=== PATIENT | female | born 1955 | race Caucasian/White ===

== ENCOUNTER → 2018-10-08 11:04 | Outpatient (CLI) | payer MEDICARE, OTHER, SELFPAY ==
[2018-10-08 12:06] LABS: Blood Urea Nitrogen 21 mg/dL (7-17); Estimated Glomerular Filt Rate > 60.0 mL/min (>60)
== END ==
PROVIDERS: PCP Internal Medicine; Visit Provider Internal Medicine
DX: I71.2 Thoracic aortic aneurysm, without rupture (principal)
CPT/HCPCS: 36415; 82565; 84520

== ENCOUNTER → 2018-10-18 09:36 | Outpatient (CLI) | payer MEDICARE, OTHER, SELFPAY ==
--- NOTE | 2018-10-18 | DI.CT.S_ITS ---
PROCEDURE: CT CHEST W CON INDICATIONS: THORACIC AORTIC ANEURYSM TECHNIQUE: After the administration of intravenous contrast, 5 mm thick sections acquired from the pulmonary apices to the posterior costophrenic angles. 7 mm thick coronal and sagittal MIP reformats were acquired. For radiation dose reduction, the following was used: automated exposure control, adjustment of mA and/or kV according to patient size. COMPARISON: [facility], CT, THORAX WITH CONTRAST, 06/22/2017, 10:10. [facility], CT, PE STUDY (CTA CHEST), 04/24/2008, 12:18. [facility], CT, THORAX WITH CONTRAST, 06/04/2013, 10:01. FINDINGS: Image quality: Excellent. Lungs and pleura: There is moderate to severe emphysema. No acute air space opacities. No pleural effusions or pneumothorax. Central and peripheral airways are patent and normal in caliber. Mediastinum: Heart size is normal. No pericardial effusion. No mediastinal or hilar adenopathy by size criteria. The ascending thoracic aorta is mildly aneurysmal measuring 4.4 cm in diameter, unchanged compared to 06/04/2013, and tapering to 2.7 cm in the proximal aortic arch. The descending thoracic aorta is normal in caliber measuring 2.9-2.2 cm. The central pulmonary arteries are normal in size. Esophagus is normal in caliber. No hiatal hernia. Bones and chest wall: No suspicious bony lesions. No vertebral body compression fractures. No axillary or supraclavicular adenopathy by size criteria. Multiple is subcentimeter axillary lymph nodes are noted, unchanged from prior examinations and most likely reactive. Thyroid gland is normal. Abdomen: Visualized upper abdominal solid organs appear normal. Upper abdominal bowel loops are normal in caliber. A 2.2 cm exophytic nodule with fat attenuation in the superior pole of the left kidney, compatible with a angiomyolipoma. There are several small low density nodules in the superior pole of left kidney, most likely cyst. IMPRESSION: 1. Stable ascending thoracic aortic aneurysm since 06/04/2013 measuring 4.4 cm. 2. Moderate to severe emphysema. 3. 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 Dictated by: Melida Florian M.D. on 10/18/2018 at 11:29 Approved by: Melida Florian M.D. on 10/18/2018 at 11:44
== END ==
PROVIDERS: PCP Internal Medicine; Visit Provider Internal Medicine
DX: I71.2 Thoracic aortic aneurysm, without rupture (principal); J43.9 Emphysema, unspecified; D17.71 Benign lipomatous neoplasm of kidney
CPT/HCPCS: 71260; Q9967

== ENCOUNTER → 2018-10-31 14:08 | Outpatient (CLI) | payer MEDICARE, OTHER, SELFPAY ==
--- NOTE | 2018-10-31 | DI.RAD.S_ITS ---
PROCEDURE: XR CHEST 2V INDICATIONS: COUGH TECHNIQUE: 2 views of the chest were acquired. COMPARISON: None. FINDINGS: Surgical changes and devices: None. Lungs and pleura: Lungs are clear. No pleural effusions or pneumothorax. Mediastinum: Mediastinal contours are normal. Heart size is normal. Bones and chest wall: No suspicious bony abnormalities. Soft tissues appear unremarkable. IMPRESSION: No evidence acute pulmonary process. Dictated by: Kaden Centeno M.D. on 10/31/2018 at 15:03 Approved by: Kaden Centeno M.D. on 10/31/2018 at 15:04
== END ==
PROVIDERS: PCP Internal Medicine; Visit Provider Internal Medicine
DX: R05 Cough (principal)
CPT/HCPCS: 71046

== ENCOUNTER → 2018-11-01 14:49 | Outpatient (CLI) | payer MEDICARE, OTHER, SELFPAY ==
--- NOTE | 2018-11-08 15:25 | PM.PFT.1 ---
Pulmonary Function Test Referral & Results Date Patient Seen: 11/01/18 Requesting provider: Jay Newman Indication: J98.2 Results: The spirometry demonstrates an FVC of 2.01 L which is 67% of predicted. The FEV1 was measured at 1.62 L which is 71% of predicted. The FEV1/FVC ratio was 81 which is 104% of predicted. Following the administration of bronchodilator there was 21% improvement in FEF 25-75%. Lung volumes show an SVC of 2.16 L which is 76% of predicted. The diffusing capacity was measured at 19.59 which is 88% of predicted. The maximum voluntary ventilation was normal Interpretation: This study demonstrates mild obstructive lung disease based on slight reduction in FEV1. There is a slight improvement in small airway flow based on improvement in FEF 25-75% following bronchodilator administration There is also mild restrictive lung disease present based on reduction SVC Diffusing capacity is probably normal Compared to PFTs performed in March 2014, there has been a slight reduction in FEV1 and SVC Clinical correlation suggested
== END ==
PROVIDERS: PCP Internal Medicine; Visit Provider Internal Medicine
DX: J98.2 Interstitial emphysema (principal)
CPT/HCPCS: 94060; 94726; 94729

== ENCOUNTER → 2018-11-18 15:53 | Outpatient (CLI) | payer MEDICARE, OTHER, SELFPAY ==
[2018-11-18 16:13] LABS: Add Manual Diff / Slide Review NO; Basophils Absolute Auto 100 /uL (0-100); Eosinophils Absolute Auto 100 /uL (0-450); Hematocrit 45.7 % (36-46); Hemoglobin 14.9 g/dL (12.0-16.0); Lymphocytes Absolute Auto 1200 /uL (1100-4500); Lymphocytes Percent Auto 19.7 % (25-40); Mean Corpuscular HGB Conc 32.6 % (30-36); Mean Corpuscular Hemoglobin 29.9 PG (26-34); Mean Corpuscular Volume 91.8 fL (80-100); Monocytes Absolute Auto 600 /uL (0-900); Monocytes Percent Auto 9.8 % (3-14); Neutrophils Absolute Auto 4200 /uL (1500-7000); Neutrophils Percent Auto 67.5 % (50-75); Platelet Count 234 X10^3/uL (150-400); Red Blood Cell Count 4.98 X10^6/uL (4.0-5.2); Red Cell Distribution Width 13.6 % (11.6-14.8); White Blood Cell Count 6.2 X10^3/uL (4.5-11.0)
[2018-11-18 16:19] LABS: Monotest Negative (Negative)
[2018-11-18 16:32] LABS: C-Reactive Protein Quant 0.5 mg/dL (<1.0)
[2018-11-18 16:40] LABS: Erythrocyte Sedimentation Rate 7 MM/HR (0-20)
[2018-11-21 12:49] LABS: Anti-Streptolysin O Antibody < 50 IU/mL (< 200)
== END ==
PROVIDERS: PCP Internal Medicine; Visit Provider Internal Medicine
DX: J31.1 Chronic nasopharyngitis (principal)
CPT/HCPCS: 36415; 85025; 85651; 86060; 86140; 86318

== ENCOUNTER → 2020-04-24 10:47 | Outpatient (CLI) | payer OTHER, MEDICARE, SELFPAY ==
[2020-04-26 11:36] LABS: COVID19 Sendout Not Detected (Not Detected)
== END ==
PROVIDERS: PCP Internal Medicine; Visit Provider Nurse Practitioner
DX: Z11.59 Encounter for screening for other viral diseases (principal)
CPT/HCPCS: 87635

== ENCOUNTER → 2020-05-05 13:58 | Outpatient (CLI) | payer OTHER, MEDICARE, SELFPAY ==
[2020-05-05 16:43] LABS: BUN Creatinine Ratio 29.4 (6-22); Blood Urea Nitrogen 20 mg/dL (7-17); Calcium 9.6 mg/dL (8.4-10.2); Carbon Dioxide 24 mmol/L (22-32); Chloride 105 mmol/L (98-107); Estimated Glomerular Filt Rate > 60.0 mL/min (>60); Glucose 82 mg/dL (80-110); HEMOLYSIS < 15 (0-50); Potassium 4.3 mmol/L (3.4-5.1); Sodium 138 mmol/L (137-145)
== END ==
PROVIDERS: PCP Internal Medicine; Referring Provider Internal Medicine; Visit Provider Internal Medicine
DX: I71.2 Thoracic aortic aneurysm, without rupture (principal)
CPT/HCPCS: 36415; 80048

== ENCOUNTER → 2020-05-07 11:10 | Outpatient (CLI) | payer OTHER, MEDICARE, SELFPAY ==
--- NOTE | 2020-05-07 | DI.CT.S_ITS ---
PROCEDURE: CT CHEST W CON INDICATIONS: Thoracic ascending aortic aneurysm, without rupture TECHNIQUE: After the administration of intravenous contrast, 5 mm thick sections acquired from the pulmonary apices to the posterior costophrenic angles. 1 mm axial lung, 5 mm thick coronal and sagittal reformats and 7 mm axial MIP were acquired. For radiation dose reduction, the following was used: automated exposure control, adjustment of mA and/or kV according to patient size. COMPARISON: [facility], CT, THORAX WITH CONTRAST, 06/10/2010, 9:50. [facility], CT, THORAX WITH CONTRAST, 06/04/2013, 10:01. [facility], CT, CT CHEST W CON, 10/18/2018, 9:37. FINDINGS: Image quality: Excellent. Lungs and pleura: No acute air space opacities. No pleural effusions or pneumothorax. Central and peripheral airways are patent and normal in caliber. Mediastinum: Heart size is normal. No pericardial effusion. No mediastinal or hilar adenopathy by size criteria. The ascending thoracic aorta measures 4.4 cm in diameter. The ascending thoracic aorta measured 4.3 cm in oblique axial diameter on the comparison CT dated June 04, 2013. The central pulmonary arteries are normal in size. Esophagus is normal in caliber. No hiatal hernia. Bones and chest wall: No suspicious bony lesions. No vertebral body compression fractures. No axillary or supraclavicular adenopathy by size criteria. Thyroid gland is unremarkable . Abdomen: Left midpole angiomyolipoma is redemonstrated and appears unchanged from the 2013 CT. Visualized upper abdominal solid organs appear normal. Upper abdominal bowel loops are normal in caliber. IMPRESSION: 1. Stable appearance of the annuloaortic ectasia when compared with the CT from 2013. 2. No acute pulmonary findings. Dictated by: Maria Del Carmen Bryson M.D. on 05/07/2020 at 14:29 Approved by: Maria Del Carmen Bryson M.D. on 05/07/2020 at 15:02
== END ==
PROVIDERS: PCP Internal Medicine; Referring Provider Internal Medicine; Visit Provider Internal Medicine
DX: I71.2 Thoracic aortic aneurysm, without rupture (principal)
CPT/HCPCS: 71260; Q9967

== ENCOUNTER 2021-02-11 15:58 | Emergency (ER) | payer MEDICARE, OTHER, SELFPAY ==
[2021-02-11] VITALS (9 sets, daily range): BP systolic 142–183; BP diastolic 76–89; PULSE 69–98; RESP 16–24; TEMP 36.7; O2SAT 94–97; BMI 30.4
--- NOTE | 2021-02-11 16:08 | DI.RAD.S_ITS ---
PROCEDURE: XR CHEST 1V INDICATIONS: chest pain TECHNIQUE: One view of the chest was acquired. COMPARISON: [facility], CR, XR CHEST 2V, 10/31/2018, 14:18. FINDINGS: Surgical changes and devices: None. Lungs and pleura: Lungs are clear. No pleural effusions or pneumothorax. Mediastinum: Mediastinal contours appear normal. Heart size is normal. Bones and chest wall: No suspicious bony lesions. Overlying soft tissues appear unremarkable. IMPRESSION: No acute cardiopulmonary pathology. Dictated by: Ke Stein M.D. on 02/11/2021 at 16:44 Approved by: Ke Stein M.D. on 02/11/2021 at 16:44
[2021-02-11 16:41] LABS: Add Manual Diff / Slide Review NO; Basophils Absolute Auto 0 /uL (0-100); Basophils Percent Auto 0.8 % (0-2); Eosinophils Absolute Auto 100 /uL (0-450); Hemoglobin 13.9 g/dL (12.0-16.0); Lymphocytes Absolute Auto 1300 /uL (1100-4500); Lymphocytes Percent Auto 24.8 % (25-40); Mean Corpuscular Hemoglobin 31.6 PG (26-34); Monocytes Absolute Auto 600 /uL (0-900); Monocytes Percent Auto 11.4 % (3-14); Neutrophils Absolute Auto 3300 /uL (1500-7000); Platelet Count 210 X10^3/uL (150-400); Red Cell Distribution Width 13.5 % (11.6-14.8); White Blood Cell Count 5.4 X10^3/uL (4.5-11.0)
[2021-02-11 16:56] LABS: Alanine Aminotransferase 19 IU/L (<35); Albumin 4.2 g/dL (3.5-5.0); Albumin Globulin Ratio 1.6 (1.0-2.8); Alkaline Phosphatase 78 U/L (38-126); Aspartate Aminotransferase 23 IU/L (14-36); BUN Creatinine Ratio 29.9 (6-22); Bilirubin Total 0.7 mg/dL (0.2-1.3); Blood Urea Nitrogen 20 mg/dL (7-17); Calcium 9.6 mg/dL (8.4-10.2); Carbon Dioxide 26 mmol/L (22-32); Chloride 108 mmol/L (98-107); Creatine Kinase 49 U/L (30-135); Estimated Glomerular Filt Rate > 60.0 mL/min (>60); Globulin 2.7 g/dL (1.7-4.1); Glucose 100 mg/dL (80-110); HEMOLYSIS < 15 (0-50); Lipase 108 U/L (23-300); Potassium 3.6 mmol/L (3.4-5.1); Sodium 142 mmol/L (137-145); Total Protein 6.9 g/dL (6.3-8.2)
[2021-02-11 17:08] LABS: Troponin I < 0.012 ng/mL (0.01-0.034)
[2021-02-11 18:58] LABS: Creatine Kinase 45 U/L (30-135)
[2021-02-11 19:11] LABS: Troponin I < 0.012 ng/mL (0.01-0.034)
--- NOTE | 2021-02-11 19:33 | ED_ITS ---
HPI - Chest Pain General Chief Complaint: Chest Pain Stated Complaint: chest pain this am Time Seen by Provider: 02/11/21 16:02 Source: patient Mode of arrival: Ambulatory Limitations: no limitations History of Present Illness HPI narrative: Patient is a 65-year-old female who came into the emergency department this evening for evaluation of symptoms that occur this morning. She states that she had a fairly sudden onset of left-sided chest pain and cramping. Last a few minutes and then seem to resolve. Unsure if it was worse with palpation or movement. No short of breath. The time my evaluation she was as ymptomatic. Has never had anything like this in the past. Has not tried anything for the symptoms prior to arrival Related Data Home Medications Medication Instructions Recorded Confirmed [ADVIL] #0 08/28/08 01/05/20 amlodipine 5 mg tablet 5 mg PO DAILY 09/21/19 01/05/20 Allergies Allergy/AdvReac Type Severity Reaction Status Date / Time Sulfa (Sulfonamide Allergy Unknown Verified 02/11/21 16:09 Antibiotics) [SULFA (SULFONAMIDE ANTIBIOTICS)] Review of Systems Constitutional Constitutional: Reports system reviewed and no additional complaints, except as documented Cardiovascular Cardiovascular: Reports chest pain and Denies dyspnea Respiratory Respiratory: Denies dyspnea Gastrointestinal Gastrointestinal: Reports system reviewed and no additional complaints, except as documented Genitourinary Genitourinary: Reports system reviewed and no additional complaints, except as documented Musculoskeletal Musculoskeletal: Reports system reviewed and no additional complaints, except as documented Integumentary/Breasts Skin/Breast: Reports system reviewed and no additional complaints, except as documented Neurologic Neurologic: Reports system reviewed and no additional complaints, except as documented Hematologic/Lymphatic On Anticoagulants: No Allergic/Immunologic Allergic/Immunologic: Reports system reviewed and no additional complaints, except as documented Patient History Medical History Fatigue Snoring Social History Smoking Status: Never smoker Smoking Status: Never smoker alcohol intake frequency: 0-2 drinks per day Alcohol type: wine Exam Initial Vital Signs Initial Vital Signs: Vital Signs Temperature 98.0 F 02/11/21 16:07 Pulse Rate 98 H 02/11/21 16:07 Respiratory Rate 16 02/11/21 16:07 Blood Pressure 183/86 H 02/11/21 16:07 Pulse Oximetry 95 02/11/21 16:07 Const General: cooperative and healthy appearing HENMT Head: normal to inspection and normocephalic Neck Neck: normal visual inspection Resp Effort & Inspection: normal respiratory effort Auscultation: clear to auscultation bilaterally Cardio Rate: regular rate Rhythm: regular rhythm GI Inspection: non-distended Palpation: soft Skin Lesions: no lesions Rashes: no rashes Neuro General: patient alert and patient awake Cognition: normal cognition Speech: speech normal Extrem General: normal to inspection and capillary refill normal Psych Appearance: grossly normal and well kempt Scores GCS Callender coma scale eye opening: Spontaneous Callender coma scale verbal response: Orientated Olivia coma scale motor response: Obey commands Callender coma scale total score: 15 HEART Score Heart Score history: Slightly Suspicious Heart Score EKG: Normal Heart Score Age: > or = 65 years old Heart Score risk factors: 1-2 risk factors Heart Score troponin: < or = to normal limit Heart Score Total: 3 Course Orders Ordered: ED Orders 02/11/21 18:33 Troponin & CK Cardiac Panel Stat Vital Signs Vital signs: Vital Signs - 8 hr 02/11/21 19:00 02/11/21 19:37 Pulse Rate 77 81 Respiratory Rate 24 16 Blood Pressure 157/88 H 160/89 H Pulse Oximetry 96 96 MDM - Chest Pain Lab Data Attestation: I reviewed the patient's lab results. Result diagrams: 02/11/21 16:26 02/11/21 16:26 Labs: Lab Results 02/11/21 02/11/21 02/11/21 Range/Units 16:26 16:26 18:33 WBC 5.4 (4.5-11.0) X10^3/uL RBC 4.40 (4.0-5.2) X10^6/uL Hgb 13.9 (12.0-16.0) g/dL Hct 41.0 (36-46) % MCV 93.0 (80-100) fL MCH 31.6 (26-34) PG MCHC 34.0 (30-36) % RDW 13.5 (11.6-14.8) % Plt Count 210 (150-400) X10^3/uL Neut % (Auto) 61.0 (50-75) % Lymph % (Auto) 24.8 L (25-40) % [place] % (Auto) 11.4 (3-14) % Eos % (Auto) 2.0 (2-4) % Baso % (Auto) 0.8 (0-2) % Neut # (Auto) 3300 (7003-2251) /uL Lymph # (Auto) 1300 (2672-6861) /uL [place] # (Auto) 600 (0-900) /uL Eos # (Auto) 100 (0-450) /uL Baso # (Auto) 0 (0-100) /uL Sodium 142 (137-145) mmol/L Potassium 3.6 (3.4-5.1) mmol/L Chloride 108 H (98-107) mmol/L Carbon Dioxide 26 (22-32) mmol/L BUN 20 H (7-17) mg/dL Creatinine 0.67 (0.52-1.04) mg/dL Estimated GFR > 60.0 (>60) mL/min BUN/Creatinine Ratio 29.9 H (6-22) Glucose 100 (80-110) mg/dL Calcium 9.6 (8.4-10.2) mg/dL Total Bilirubin 0.7 (0.2-1.3) mg/dL AST 23 (14-36) IU/L ALT 19 (<35) IU/L Alkaline Phosphatase 78 (38-126) U/L Total Creatine Kinase 49 45 (30-135) U/L CK-MB (CK-2) TNP TNP CK-MB (CK-2) Rel Index TNP TNP Troponin I < 0.012 < 0.012 (0.01-0.034) ng/mL Total Protein 6.9 (6.3-8.2) g/dL Albumin 4.2 (3.5-5.0) g/dL Globulin 2.7 (1.7-4.1) g/dL Albumin/Globulin Ratio 1.6 (1.0-2.8) Lipase 108 (23-300) U/L Imaging Data Chest x-ray: Radiologist's Impression: [address] [id number] ReportSigned Patient: Lauren Yang [facility]#: [id number]: 1955cct:[id number]/Sex: 65 / FDate of Service: 02/11/21Loc: EDAccession Number: [id number] Procedure: XR chest 1V Ordering Provider: Meagan Jovel D.O. PROCEDURE: XR CHEST 1V INDICATIONS: chest pain TECHNIQUE: One view of the chest was acquired. COMPARISON: [facility], CR, XR CHEST 2V, 10/31/2018, 14:18. FINDINGS: Surgical changes and devices: None. Lungs and pleura: Lungs are clear. No pleural effusions or pneumothorax. Mediastinum: Mediastinal contours appear normal. Heart size is normal. Bones and chest wall: No suspicious bony lesions. Overlying soft tissues appear unremarkable. IMPRESSION: No acute cardiopulmonary pathology. Dictated by: Ke Stein M.D. on 02/11/2021 at 16:44 Approved by: Ke Stein M.D. on 02/11/2021 at 16:44 ECG Data Attestation: I personally reviewed and interpreted this ECG as follows: Prior ECG tracings: not available for review Interpretation: Sinus rhythm Ventricular rate of 79 Left axis deviation Normal QRS Normal QTC No ST T wave changes MDM Narrative Medical decision making narrative: Patient has had 2- troponins. Has a low risk heart score. EKG shows no signs of ischemia. Chest x-ray is unremarkable. I did discuss chest discomfort with the patient in her risk for acute coronary syndrome. Will discharge patient home to have her contact her primary doctor for follow-up to discuss further risk stratification testing. She was given return precautions. She expressed understanding and agreement. Discharge Plan Departure Patient Disposition: Home Clinical Impression: Atypical chest pain Instructions: DI for Atypical Chest Pain Activity Restrictions/Additional Instructions: Recommend that on Sunday you talk with your primary doctor about the indications for a stress test. Continue all of your medications as directed. Return to the emergency department for any new or worsening symptoms Prescriptions: No Action amlodipine 5 mg tablet 5 mg PO DAILY RF: 0 [ADVIL] Qty: 0 RF: 0 Referrals: Jay Newman MD [Primary Care Provider] -
== END 2021-02-11 19:38 | disposition home or self-care (01) ==
PROVIDERS: Emergency Medicine; Emergency Provider Emergency Medicine; PCP Internal Medicine
DX: R07.89 Other chest pain (principal)
CPT/HCPCS: 36415; 71045; 80053; 82550; 83690; 84484; 85025; 93005; 99283; 99284

== ENCOUNTER → 2021-04-18 08:50 | Outpatient (CLI) | payer MEDICARE, OTHER, SELFPAY ==
[2021-04-18 11:22] LABS: COVID19 -Nasal RAPID Negative (Negative)
== END ==
PROVIDERS: PCP Internal Medicine; Visit Provider Physician Assistant
DX: Z01.812 Encounter for preprocedural laboratory examination (principal); Z20.822 Contact with and (suspected) exposure to COVID-19
CPT/HCPCS: 87635; C9803

== ENCOUNTER → 2021-04-20 10:06 | Outpatient (CLI) | payer MEDICARE, OTHER, SELFPAY ==
--- NOTE | 2021-04-20 | DI.NM.S_ITS ---
PROCEDURE: NM SAI PERF SPECT REST & STR Rest and exercise myocardial perfusion SPECT with gated imaging and ejection fraction RADIOPHARMACEUTICAL: 26.4 mCi Tc-99m sestamibi IV at rest and 26.6 mCi Tc-99m sestamibi IV at peak exercise. A twoday-protocol was performed. INDICATIONS: Essential (primary) hypertension TECHNIQUE: Radiopharmaceutical was injected at peak stress test, and also at rest. SPECT images were obtained. SPECT myocardial perfusion images were displayed in short axis, horizontal long axis, and vertical long axis views. Gated images were reviewed using [employer] software. COMPARISON: None. CARDIAC STRESS: A standard Alex treadmill exercise tolerance test was performed by the patient under the supervision of an attending staff. The patient exercised for 4 minutes and 41 seconds; functional aerobic impairment (MARIA ESTHER) is +22%. Hemodynamic data: There is normal blood pressure and heart rate response to exercise stress. Patient achieved 105% of maximum predicted heart rate at peak exercise. Symptoms: Patient denied chest pain during exercise. EKG: No diagnostic EKG changes of ischemia; rare PACs present. FINDINGS: Raw data: There is good myocardial labeling by radiotracer. No significant motion artifacts. Left ventricle function: Gated images demonstrate normal left ventricle wall thickening. No segmental wall motion abnormality. No transient ischemic dilation; TID is 0.82 (normal less than 1.3). The left ventricle resting end-diastolic volume is 90 mL. Left ventricle stress ejection fraction is 71%; normal values are above 45%. Myocardial perfusion: There is normal distribution of activity in the left and right ventricular myocardium. No fixed or reversible perfusion defects. IMPRESSION: Low risk, normal treadmill nuclear stress test 1) No perfusion evidence of ischemia or infarction. 2) Normal left ventricular size, wall motion, and systolic function (EF post stress 71%). 3) No ECG evidence of ischemia. 4) No angina during the study. Lightheadedness present throughout the study. 5) Reduced exercise tolerance (7.1 METs, MARIA ESTHER +22%). Target heart rate achieved. Appropriate BP response to exercise. 6) No prior nuclear stress test available for comparison. Dictated by: Mikaela Cerda MD on 04/21/2021 at 16:06 Approved by: Mikaela Cerda MD on 04/21/2021 at 16:09
== END ==
PROVIDERS: PCP Internal Medicine; Referring Provider Internal Medicine; Visit Provider Internal Medicine
DX: I10 Essential (primary) hypertension (principal); R07.9 Chest pain, unspecified
CPT/HCPCS: 78452; 93017; A9502

== ENCOUNTER → 2021-06-20 12:07 | Outpatient (CLI) | payer MEDICARE, OTHER, SELFPAY ==
--- NOTE | 2021-06-20 | DI.CT.S_ITS ---
PROCEDURE: CT SINUS SCREEN WO CON INDICATIONS: Chronic sinusitis, unspecified TECHNIQUE: Noncontrast 3.0 mm axial images acquired from the frontal sinuses to the mid-sella, with coronal and sagittal reformats. For radiation dose reduction, the following was used: automated exposure control, adjustment of mA and/or kV according to patient size. COMPARISON: None. FINDINGS: Image quality: There is artifact associated with the metallic hardware. Artifact from the metallic hardware is reduced by metal reconstruction algorithm. Maxillary Sinuses: No bony remodeling or destruction. A small amount of mucosal thickening can be seen involving the inferior right frontal sinus, with minimal mucosal thickening involving the inferior left frontal sinus. Ethmoid Air Cells: No bony remodeling or destruction. Sinuses are clear. Sphenoid Sinuses: No bony remodeling or destruction. Sinuses are clear. Frontal Sinuses: No bony remodeling or destruction. Sinuses are clear. Ostiomeatal Complexes: Ostiomeatal complexes are patent, yet there constitutionally narrowed, with bilateral Krisys cells. Miscellaneous: Visualized intra-orbital contents are normal. There is a minimal right-sided jaxon bullosa is seen. There is mild rightward nasal septal deviation seen. IMPRESSION: A small amount mucosal thickening can be seen within the inferior maxillary sinuses. Narrowed ostiomeatal complexes, with bilateral Krissy cells. Mild rightward nasal septal deviation can be seen. Dictated by: Grover Murrell M.D. on 06/20/2021 at 12:14 Approved by: Grover Murrell M.D. on 06/20/2021 at 12:16
== END ==
PROVIDERS: PCP Internal Medicine; Referring Provider Internal Medicine; Visit Provider Internal Medicine
DX: J32.0 Chronic maxillary sinusitis (principal); J34.2 Deviated nasal septum
CPT/HCPCS: 70486

== ENCOUNTER → 2021-08-03 07:28 | Outpatient (CLI) | payer MEDICARE, OTHER, SELFPAY ==
[2021-08-03 08:15] LABS: Add Manual Diff / Slide Review NO; Basophils Absolute Auto 0 /uL (0-100); Basophils Percent Auto 0.7 % (0-2); Eosinophils Absolute Auto 100 /uL (0-450); Hematocrit 43.2 % (36-46); Hemoglobin 14.4 g/dL (12.0-16.0); Lymphocytes Absolute Auto 1000 /uL (1100-4500); Lymphocytes Percent Auto 18.8 % (25-40); Mean Corpuscular HGB Conc 33.2 % (30-36); Mean Corpuscular Hemoglobin 30.9 PG (26-34); Monocytes Absolute Auto 500 /uL (0-900); Monocytes Percent Auto 9.2 % (3-14); Neutrophils Absolute Auto 3800 /uL (1500-7000); Neutrophils Percent Auto 69.3 % (50-75); Platelet Count 230 X10^3/uL (150-400); Red Blood Cell Count 4.65 X10^6/uL (4.0-5.2); Red Cell Distribution Width 13.7 % (11.6-14.8); White Blood Cell Count 5.5 X10^3/uL (4.5-11.0)
[2021-08-03 09:04] LABS: HEMOLYSIS < 15 (0-50); Iron 98 ug/dL (37-170)
[2021-08-03 09:14] LABS: Percent Iron Saturation 36 % (15-50); Total Iron Binding Capacity 272 ug/dL (265-497); Transferrin 220 mg/dL (206-381)
[2021-08-03 09:42] LABS: Ferritin 109 ng/mL (11-264)
== END ==
PROVIDERS: PCP Internal Medicine; Referring Provider Physician Assistant; Visit Provider Physician Assistant
DX: K62.5 Hemorrhage of anus and rectum (principal)
CPT/HCPCS: 36415; 82728; 83540; 83550; 85025

== ENCOUNTER → 2021-10-12 10:15 | Outpatient (CLI) | payer MEDICARE, OTHER, SELFPAY ==
--- NOTE | 2021-10-12 10:21 | DI.RAD.S_ITS ---
PROCEDURE: XR CERVICAL SPINE 2V OR 3V INDICATIONS: NECK AND BACK PAIN TECHNIQUE: 3 view(s) of the cervical spine were acquired. COMPARISON: None. FINDINGS: Bones: No fractures or dislocations to the T1 level. The lateral masses of C1 appear intact on the odontoid view. No suspicious bony lesions. Disc space narrowing and endplate sclerosis noted in the mid cervical spine. Straightening of the normal cervical lordosis may be related to muscle spasm or positioning. Soft tissues: No prevertebral soft tissue swelling. IMPRESSION: Straightening of the normal cervical lordosis may be related to muscle spasm or positioning. Degenerative disc disease and arthropathy in the mid cervical spine Approved by: Zander Shukla M.D. on 10/12/2021 at 13:00
--- NOTE | 2021-10-12 10:21 | DI.RAD.S_ITS ---
PROCEDURE: XR LUMBAR SPINE 2-3V INDICATIONS: NECK AND BACK PAIN TECHNIQUE: 3 views of the lumbar spine were acquired. COMPARISON: [facility], , L-SPINE 2-3 VIEWS, 05/14/2014, 14:45. FINDINGS: Bones: 5 bew-obe-funjgsm vertebrae are present. There is a moderate dextroscoliosis of the lumbar spine centered at L3 which appears increased compared to the prior study. No vertebral body compression fractures. There is minimal retrolisthesis at L2-L3 which appears similar to the prior study. Multilevel degenerative disc disease redemonstrated throughout the lumbar spine including mild to moderate narrowing at L3-L4 with endplate sclerosis and osteophytosis. There is mild facet arthropathy in the lower lumbar spine. No suspicious bony lesions. Soft tissues: Overlying bowel gas pattern is normal. No suspicious soft tissue calcifications. IMPRESSION: 1. Moderate dextroscoliosis of the lumbar spine appears slightly increased compared to the prior study. 2. Multilevel degenerative disc disease most prominent at L3-L4 where there is mild to moderate degeneration. 3. Mild facet arthropathy in the lower lumbar spine. Dictated by: Juma Cardenas M.D. on 10/12/2021 at 16:30 Approved by: Juma Cardenas M.D. on 10/12/2021 at 16:33
== END ==
PROVIDERS: PCP Internal Medicine; Referring Provider Psychiatry & Neurology Neurology; Visit Provider Internal Medicine
DX: M50.320 Other cervical disc degeneration, mid-cervical region, unspecified level (principal); Z78.0 Asymptomatic menopausal state; M81.0 Age-related osteoporosis without current pathological fracture; M47.812 Spondylosis without myelopathy or radiculopathy, cervical region; M51.36 Other intervertebral disc degeneration, lumbar region; M47.816 Spondylosis without myelopathy or radiculopathy, lumbar region; M41.86 Other forms of scoliosis, lumbar region; M54.50 Low back pain, unspecified
CPT/HCPCS: 72040; 72100; 77080

== ENCOUNTER → 2021-11-08 11:29 | Outpatient (CLI) | payer MEDICARE, OTHER, SELFPAY ==
--- NOTE | 2021-11-08 | DI.MG.S_ITS ---
BILATERAL DIGITAL SCREENING MAMMOGRAM 3D/2D WITH CAD: 11/08/2021 CLINICAL: Baseline exam. Routine screening. No prior exams were available for comparison. There are scattered fibroglandular elements in both breasts. Current study was also evaluated with a Computer Aided Detection (CAD) system. No significant masses, calcifications, or other findings are seen in either breast. IMPRESSION: NEGATIVE There is no mammographic evidence of malignancy. A 1 year screening mammogram is recommended. This exam was interpreted at Station ID: [id number]. NOTE: For mammograms, a report in lay terms will be sent to the patient. Approximately 15% of breast malignancies will not be visualized mammographically. In the management of a palpable breast mass, a negative mammogram must not discourage biopsy of a clinically suspicious lesion. Electronically Signed By: Prasad pollard/christopher:11/08/2021 14:13:12 letter sent: Normal Exam ACR BI-RADS Category 1: Negative [id number]
== END ==
PROVIDERS: PCP Internal Medicine; Referring Provider Internal Medicine; Visit Provider Internal Medicine
DX: Z12.31 Encounter for screening mammogram for malignant neoplasm of breast (principal)
CPT/HCPCS: 77063; 77067

== ENCOUNTER → 2021-11-23 13:45 | Outpatient (CLI) | payer MEDICARE, OTHER, SELFPAY ==
--- NOTE | 2021-11-23 14:28 | DI.MRI.S_ITS ---
PROCEDURE: MR HEAD/BRAIN WO/W CON INDICATIONS: Dizziness and giddiness TECHNIQUE: Noncontrast axial T1 spin echo, axial T2 fast spin echo, sagittal and axial FLAIR, coronal T2 fast spin echo, axial gradient echo, axial diffusion and ADC through the brain. After the administration of contrast, axial and coronal T1 spin echo with fat saturation through the brain. COMPARISON: None. FINDINGS: Image quality: Excellent. CSF spaces: Basal cisterns are patent. No extra-axial fluid collections. Ventricles are normal in size and shape. Brain: No midline shift. No intracranial bleeds or masses. No abnormal intracranial enhancement. There is cerebral volume loss for age. There is minimal periventricular white matter and right subinsular white matter chronic small vessel ischemic change. The brainstem appears normal. Diffusion-weighted images demonstrate no acute ischemic insults. No chronic ischemic insults. Normal intravascular flow voids are present. Dural sinuses demonstrate normal postcontrast enhancement. Skull and face: Calvarial marrow is normal in signal. Orbits appear normal. There is a 2.1 x 2.8 x 2.6 centimeter heterogeneously enhancing mass in the right infratemporal fossa. The lesion abuts the right pterygoid musculature in the deep lobe of the right parotid gland. Lesion has oval contours and relatively well-defined margins. No soft tissue edema is associated with the mass. Sinuses: Sinuses and mastoids appear clear. IMPRESSION: 1. No acute intracranial disease process. 2. No abnormal intracranial mass. 3. No suspicious intracranial postcontrast enhancement. 4. Mild, diffuse cerebral volume loss. 5. Minimal periventricular and 7/white matter chronic microvascular ischemic change. 6. 2.1 x 2.8 x 2.6 centimeter enhancing mass in the right infratemporal fossa compatible with benign neoplastic process including schwannoma and neurofibroma or benign neoplasm right knee in from the deep lobe of the right parotid gland such as pleomorphic adenoma as well as malignancy including metastatic disease. Recommend ENT consultation. Dictated by: Marina Lacy MD, PhD on 11/23/2021 at 15:01 Approved by: Marina Lacy MD, PhD on 11/23/2021 at 15:19
== END ==
PROVIDERS: PCP Internal Medicine; Referring Provider Internal Medicine; Visit Provider Internal Medicine
DX: G93.9 Disorder of brain, unspecified (principal); R42 Dizziness and giddiness
CPT/HCPCS: 70553

== ENCOUNTER → 2021-12-26 14:38 | Outpatient (CLI) | payer MEDICARE, OTHER, SELFPAY ==
[2021-12-27 20:13] LABS: SS A Ro Sjogrens Antibody < 0.2 AI (0.0-0.9)
== END ==
PROVIDERS: PCP Internal Medicine; Referring Provider Otolaryngology Facial Plastic Surgery; Visit Provider Otolaryngology Facial Plastic Surgery
DX: D49.0 Neoplasm of unspecified behavior of digestive system (principal); R68.2 Dry mouth, unspecified
CPT/HCPCS: 36415; 86235

== ENCOUNTER → 2022-10-07 10:15 | Outpatient (CLI) | payer MEDICARE, OTHER, SELFPAY ==
--- NOTE | 2022-10-07 10:20 | DI.RAD.S_ITS ---
PROCEDURE: XR RIBS LT MIN 3V W CXR1V INDICATIONS: Left rib pain TECHNIQUE: 3 views of the left ribs were acquired, along with a single view chest. COMPARISON: None. FINDINGS: Surgical changes and devices: None. Bones and chest wall: No fractures or dislocations. No suspicious bony lesions. Overlying soft tissues appear unremarkable. Lungs and pleura: No pleural effusions or pneumothorax. Lungs appear clear. Mediastinum: Mediastinal contours appear normal. Heart size is normal. IMPRESSION: No acute cardiopulmonary findings No evidence of rib fracture or pneumothorax. Approved by: Zander Shukla M.D. on 10/07/2022 at 11:57
== END ==
PROVIDERS: PCP Internal Medicine; Referring Provider Nurse Practitioner Family; Visit Provider Nurse Practitioner Family
DX: R07.81 Pleurodynia (principal)
CPT/HCPCS: 71101

== ENCOUNTER 2023-09-10 17:32 | Emergency (ER) | payer MEDICARE, OTHER, SELFPAY ==
[2023-09-10] VITALS (20 sets, daily range): BP systolic 126–164; BP diastolic 66–86; PULSE 61–93; RESP 12–32; TEMP 36.6; O2SAT 91–98; BMI 25.8
--- NOTE | 2023-09-10 17:38 | DI.CT.S_ITS ---
PROCEDURE: CT STROKE INDICATIONS: facial droop,not TPA candidate. sx started 3 days ago. TECHNIQUE: Noncontrast 4.5 mm thick angled axial sections acquired from the foramen magnum to the vertex, with coronal reformats. For radiation dose reduction, the following was used: automated exposure control, adjustment of mA and/or kV according to patient size. COMPARISON: [facility], MR, MR ANGIO HEAD WITHOUT CONTRAST, 07/21/2022, 14:11. FINDINGS: Image quality: Diagnostic. CSF spaces: Basal cisterns are patent. No extra-axial fluid collections. Ventricles are normal in size and shape. Brain: Heterogeneous attenuation of the right basal ganglia, with masslike lesion measuring 4.7 x 5.8 cm. Surrounding vasogenic edema and mass effect, with a 6 mm midline shift, right to left. Skull and face: Calvarium and visualized facial bones are intact, without suspicious lesions. Sinuses: Visualized sinuses and mastoids are clear. IMPRESSION: Suspect mass in the right basal ganglia measuring approximately 4.7 x 5.8 cm. 6 mm midline shift, right to left. No herniation Findings discussed with Dr. Parra at 6:03 p.m. On 09/10/2023. This study fulfills neurological imaging criteria for inclusion or exclusion of acute stroke therapies based on available published neurological imaging guidelines. Dictated by: Guilherme Adams M.D. on 09/10/2023 at 18:00 Approved by: Guilherem Adams M.D. on 09/10/2023 at 18:04
--- NOTE | 2023-09-10 18:42 | ED_ITS ---
HPI - Neuro Symptoms/Deficit <Meagan Jovel DO - Last Filed: 09/14/23 19:56> General Chief Complaint: Neuro Symptoms/Deficit Stated Complaint: poss stroke/left facial drooping Time Seen by Provider: 09/10/23 18:20 Source: patient and family Mode of arrival: Ambulatory History of Present Illness HPI Narrative: Patient is a 68-year-old female history of hypertension hyperlipidemia presents today with stroke-like symptoms ongoing for the last 3 days. reports that she has had some left facial droop he has had difficulty understanding her at times she has been drooling at times. Shuffling gait. No significant arm or leg weakness. She says that she is felt nauseous and thought that she had like a stomach flu. She has not on any anticoagulation or anti platelet medication. She has not fallen. On Anticoagulants: No Related Data Home Medications Medication Instructions Recorded Confirmed [ADVIL] 200 PRN Analgesia ##0 08/28/08 10/07/22 amlodipine 5 mg tablet 5 mg PO DAILY 09/21/19 09/11/23 coenzyme Q10 [CoQ-10] See Rx Instructions .Route .COMPLEX 12/28/21 09/11/23 mecobalamin (vitamin B12) 1,000 1,000 mcg sublingual DAILY 12/28/21 09/11/23 mcg disintegrating tablet,sublingual rosuvastatin 5 mg tablet 5 mg PO DAILY 12/28/21 09/11/23 Allergies Allergy/AdvReac Type Severity Reaction Status Date / Time Sulfa (Sulfonamide Allergy Unknown Verified 10/07/22 10:06 Antibiotics) [SULFA (SULFONAMIDE ANTIBIOTICS)] erythromycin base AdvReac Unknown Verified 10/07/22 10:06 Review of Systems <Meagan Jovel DO - Last Filed: 09/14/23 19:56> Hematologic/Lymphatic On Anticoagulants: No Patient History <Meagan Jovel DO - Last Filed: 09/14/23 19:56> Medical History Fatigue Snoring Social History Smoking Status: Never smoker Smoking Status: Never smoker alcohol intake frequency: a few times a week Alcohol type: wine Substance Use Type: does not use Exam <Meagan Jovel DO - Last Filed: 09/14/23 19:56> Initial Vital Signs Initial Vital Signs: Vital Signs Temperature 97.8 F 09/10/23 17:34 Pulse Rate 91 H 09/10/23 17:34 Respiratory Rate 18 09/10/23 17:34 Blood Pressure 158/80 H 09/10/23 17:34 Pulse Oximetry 95 09/10/23 17:34 Oxygen Delivery Method Room Air 09/10/23 17:34 GENERAL: Alert pleasant 68-year-old female and in no acute distress. HEENT: Head atraumatic,EOMI, pupils reactive, face symmetric, moist mucous membranes CARDIOVASCULAR: Regular rate and rhythm without murmurs, rubs or gallops. RESPIRATORY: Breath sounds equal bilaterally, no wheezes rales or rhonchi. ABDOMEN: Soft, nontender. Normoactive bowel sounds all 4 quadrants. No guarding or rebound. EXTREMITIES: Normal range of motion, no clubbing or edema. Neurovascularly intact NEUROLOGICAL: Alert and oriented x4. Left facial droop Cranial nerves II through XII grossly intact. Good [id number]-ghcj, good cloz-ve-susr, strength equal bilaterally, no dysarthria or aphasia, sensation in tact to soft touch bilaterally, no visual changes, left facial droop SKIN: Warm, dry, no laceration, no petechiae, no rashes or lesions. <Blayne Penny, DO - Last Filed: 09/16/23 07:53> Initial Vital Signs Initial Vital Signs: Vital Signs Temperature 97.8 F 09/10/23 17:34 Pulse Rate 91 H 09/10/23 17:34 Respiratory Rate 18 09/10/23 17:34 Blood Pressure 158/80 H 09/10/23 17:34 Pulse Oximetry 95 09/10/23 17:34 Oxygen Delivery Method Room Air 09/10/23 17:34 <Rossi Aburto, DO - Last Filed: 09/12/23 17:50> Initial Vital Signs Initial Vital Signs: Vital Signs Temperature 97.8 F 09/10/23 17:34 Pulse Rate 91 H 09/10/23 17:34 Respiratory Rate 18 09/10/23 17:34 Blood Pressure 158/80 H 09/10/23 17:34 Pulse Oximetry 95 09/10/23 17:34 Oxygen Delivery Method Room Air 09/10/23 17:34 Scores <Meagan Jovel, DO - Last Filed: 09/14/23 19:56> NIH Stroke Scale Level of Conciousness: Alert, keenly responsive Ask month/age: Answers both questions correctly. Open/close eyes, close hand: Performs both tasks correctly Best gaze horizontal: Normal Visual lora: No visual loss Facial palsy: Minor paralysis, flattened nasolabial fold, asymmetry on smiling Left arm drift: No drift for full 10 sec Right arm drift: No drift for full 10 sec Left leg drift: No drift for full 5 sec Right leg drift: No drift for full 5 sec Limb ataxia: Absent Sensory on face/arms/legs: Normal, no sensory loss Best language: No aphasia, normal Dysarthria: Normal Extinction or inattention: No abnormality Total NIH Stroke scale score: 1 <Blayne Penny, DO - Last Filed: 09/16/23 07:53> NIH Stroke Scale Total NIH Stroke scale score: 1 <Rossi Aburto, DO - Last Filed: 09/12/23 17:50> NIH Stroke Scale Total NIH Stroke scale score: 1 Course <Meagan Jovel, DO - Last Filed: 09/14/23 19:56> Orders Ordered: Discontinued Medications Acetaminophen (Acetaminophen 325 Mg Tablet) 650 mg PO Q6H [facility] Last Admin: 09/11/23 11:55 Dose: Not Given Documented By: XENIA Acetaminophen (Acetaminophen 325 Mg Tablet) 650 mg PO Q6HR PRN PRN Reason: Fever/Mild Pain (1-3) Amlodipine Besylate (Amlodipine 5 Mg Tablet) 5 mg PO DAILY [facility] Last Admin: 09/12/23 09:41 Dose: 5 mg Documented By: JUAN [email or web address]) Admin: 09/11/23 09:35 Dose: 5 mg Documented By: OJ Amoxicillin (Amoxicillin 250 Mg Capsule) 500 mg PO TID [facility] Last Admin: 09/12/23 15:09 Dose: 500 mg Documented By: XENIA(2) Admin: 09/12/23 09:40 Dose: 500 mg Documented By: JUAN [email or web address]) Admin: 09/12/23 00:02 Dose: Not Given Documented By: Admin: 09/12/23 00:00 Dose: 500 mg Documented By: Admin: 09/11/23 09:35 Dose: 500 mg Documented By: Admin: 09/10/23 20:49 Dose: 500 mg Documented By: RAZIA Dexamethasone (Dexamethasone 10 Mg/Ml Vial) 10 mg IV NOW ONE Stop: 09/10/23 18:43 Last Admin: 09/10/23 18:56 Dose: 10 mg Documented By: XENIA Dexamethasone (Dexamethasone 4 Mg/Ml Vial) 4 mg IV Q6H [facility] Last Admin: 09/12/23 17:52 Dose: 4 mg Documented By: XENIA(2) Admin: 09/12/23 12:37 Dose: 4 mg Documented By: XENIA(Rosalia) Admin: 09/12/23 06:04 Dose: 4 mg Documented By: Admin: 09/12/23 00:02 Dose: 4 mg Documented By: Admin: 09/12/23 00:01 Dose: Not Given Documented By: Admin: 09/12/23 00:01 Dose: Not Given Documented By: Admin: 09/11/23 06:31 Dose: 4 mg Documented By: Admin: 09/11/23 00:25 Dose: 4 mg Documented By: RAZIA Enoxaparin Sodium (Enoxaparin 40 Mg/0.4 Ml Syringe) 40 mg SUBCUT DAILY [facility] Last Admin: 09/12/23 09:41 Dose: 40 mg Documented By: XENIA(2) Admin: 09/11/23 09:35 Dose: 40 mg Documented By: OJ Sodium Chloride (Normal Saline 0.9%) 1,000 mls @ 100 mls/hr IV CONT [facility] Last Infusion: 09/11/23 08:00 Dose: Infused Documented By: Admin: 09/10/23 21:29 Dose: 100 mls/hr Documented By: RAZIA Naloxone HCl (Naloxone 0.4 Mg/Ml Vial) 0.2 mg IV Q2MIN PRN PRN Reason: Opiate Reversal Ondansetron HCl (Ondansetron 4 Mg/2 Ml Inj) 4 mg IV Q8H PRN PRN Reason: Nausea And Vomiting Vital Signs Vital signs: Vital Signs - 8 hr 09/12/23 10:00 09/12/23 10:30 09/12/23 11:00 Pulse Rate 83 86 81 Blood Pressure Pulse Oximetry 94 93 94 09/12/23 11:30 09/12/23 12:10 09/12/23 12:11 Pulse Rate 81 Blood Pressure 135/72 Pulse Oximetry 93 93 09/12/23 12:11 09/12/23 16:07 09/12/23 16:07 Pulse Rate 83 88 Blood Pressure 138/76 Pulse Oximetry 93 94 <Blayne Penny, DO - Last Filed: 09/16/23 07:53> Orders Ordered: Discontinued Medications Acetaminophen (Acetaminophen 325 Mg Tablet) 650 mg PO Q6H [facility] Last Admin: 09/11/23 11:55 Dose: Not Given Documented By: XENIA Acetaminophen (Acetaminophen 325 Mg Tablet) 650 mg PO Q6HR PRN PRN Reason: Fever/Mild Pain (1-3) Amlodipine Besylate (Amlodipine 5 Mg Tablet) 5 mg PO DAILY [facility] Last Admin: 09/12/23 09:41 Dose: 5 mg Documented By: JUAN [email or web address]) Admin: 09/11/23 09:35 Dose: 5 mg Documented By: OJ Amoxicillin (Amoxicillin 250 Mg Capsule) 500 mg PO TID [facility] Last Admin: 09/12/23 15:09 Dose: 500 mg Documented By: JUAN [email or web address]) Admin: 09/12/23 09:40 Dose: 500 mg Documented By: JUAN [email or web address]) Admin: 09/12/23 00:02 Dose: Not Given Documented By: Admin: 09/12/23 00:00 Dose: 500 mg Documented By: Admin: 09/11/23 09:35 Dose: 500 mg Documented By: Admin: 09/10/23 20:49 Dose: 500 mg Documented By: RAZIA Dexamethasone (Dexamethasone 10 Mg/Ml Vial) 10 mg IV NOW ONE Stop: 09/10/23 18:43 Last Admin: 09/10/23 18:56 Dose: 10 mg Documented By: XENIA Dexamethasone (Dexamethasone 4 Mg/Ml Vial) 4 mg IV Q6H [facility] Last Admin: 09/12/23 17:52 Dose: 4 mg Documented By: XENIA(2) Admin: 09/12/23 12:37 Dose: 4 mg Documented By: KATHERINE) Admin: 09/12/23 06:04 Dose: 4 mg Documented By: Admin: 09/12/23 00:02 Dose: 4 mg Documented By: Admin: 09/12/23 00:01 Dose: Not Given Documented By: Admin: 09/12/23 00:01 Dose: Not Given Documented By: Admin: 09/11/23 06:31 Dose: 4 mg Documented By: Admin: 09/11/23 00:25 Dose: 4 mg Documented By: RAZIA Enoxaparin Sodium (Enoxaparin 40 Mg/0.4 Ml Syringe) 40 mg SUBCUT DAILY [facility] Last Admin: 09/12/23 09:41 Dose: 40 mg Documented By: XENIA(2) Admin: 09/11/23 09:35 Dose: 40 mg Documented By: OJ Sodium Chloride (Normal Saline 0.9%) 1,000 mls @ 100 mls/hr IV CONT [facility] Last Infusion: 09/11/23 08:00 Dose: Infused Documented By: Admin: 09/10/23 21:29 Dose: 100 mls/hr Documented By: RAZIA Naloxone HCl (Naloxone 0.4 Mg/Ml Vial) 0.2 mg IV Q2MIN PRN PRN Reason: Opiate Reversal Ondansetron HCl (Ondansetron 4 Mg/2 Ml Inj) 4 mg IV Q8H PRN PRN Reason: Nausea And Vomiting Vital Signs Vital signs: Vital Signs - 8 hr 09/12/23 10:00 09/12/23 10:30 09/12/23 11:00 Pulse Rate 83 86 81 Blood Pressure Pulse Oximetry 94 93 94 09/12/23 11:30 09/12/23 12:10 09/12/23 12:11 Pulse Rate 81 Blood Pressure 135/72 Pulse Oximetry 93 93 09/12/23 12:11 09/12/23 16:07 09/12/23 16:07 Pulse Rate 83 88 Blood Pressure 138/76 Pulse Oximetry 93 94 <Rossi Aburto, DO - Last Filed: 09/12/23 17:50> Orders Ordered: Discontinued Medications Acetaminophen (Acetaminophen 325 Mg Tablet) 650 mg PO Q6H [facility] Last Admin: 09/11/23 11:55 Dose: Not Given Documented By: XENIA Acetaminophen (Acetaminophen 325 Mg Tablet) 650 mg PO Q6HR PRN PRN Reason: Fever/Mild Pain (1-3) Amlodipine Besylate (Amlodipine 5 Mg Tablet) 5 mg PO DAILY [facility] Last Admin: 09/12/23 09:41 Dose: 5 mg Documented By: XENIA(2) Admin: 09/11/23 09:35 Dose: 5 mg Documented By: OJ Amoxicillin (Amoxicillin 250 Mg Capsule) 500 mg PO TID [facility] Last Admin: 09/12/23 15:09 Dose: 500 mg Documented By: XENIA(2) Admin: 09/12/23 09:40 Dose: 500 mg Documented By: XENIA(Rosalia) Admin: 09/12/23 00:02 Dose: Not Given Documented By: Admin: 09/12/23 00:00 Dose: 500 mg Documented By: Admin: 09/11/23 09:35 Dose: 500 mg Documented By: Admin: 09/10/23 20:49 Dose: 500 mg Documented By: RAZIA Dexamethasone (Dexamethasone 10 Mg/Ml Vial) 10 mg IV NOW ONE Stop: 09/10/23 18:43 Last Admin: 09/10/23 18:56 Dose: 10 mg Documented By: XENIA Dexamethasone (Dexamethasone 4 Mg/Ml Vial) 4 mg IV Q6H [facility] Last Admin: 09/12/23 17:52 Dose: 4 mg Documented By: XENIA(2) Admin: 09/12/23 12:37 Dose: 4 mg Documented By: XENIA(Rosalia) Admin: 09/12/23 06:04 Dose: 4 mg Documented By: Admin: 09/12/23 00:02 Dose: 4 mg Documented By: Admin: 09/12/23 00:01 Dose: Not Given Documented By: Admin: 09/12/23 00:01 Dose: Not Given Documented By: Admin: 09/11/23 06:31 Dose: 4 mg Documented By: Admin: 09/11/23 00:25 Dose: 4 mg Documented By: RAZIA Enoxaparin Sodium (Enoxaparin 40 Mg/0.4 Ml Syringe) 40 mg SUBCUT DAILY [facility] Last Admin: 09/12/23 09:41 Dose: 40 mg Documented By: XENIA(Rosalia) Admin: 09/11/23 09:35 Dose: 40 mg Documented By: OJ Sodium Chloride (Normal Saline 0.9%) 1,000 mls @ 100 mls/hr IV CONT [facility] Last Infusion: 09/11/23 08:00 Dose: Infused Documented By: Admin: 09/10/23 21:29 Dose: 100 mls/hr Documented By: RAZIA Naloxone HCl (Naloxone 0.4 Mg/Ml Vial) 0.2 mg IV Q2MIN PRN PRN Reason: Opiate Reversal Ondansetron HCl (Ondansetron 4 Mg/2 Ml Inj) 4 mg IV Q8H PRN PRN Reason: Nausea And Vomiting Vital Signs Vital signs: Vital Signs - 8 hr 09/12/23 10:00 09/12/23 10:30 09/12/23 11:00 Pulse Rate 83 86 81 Blood Pressure Pulse Oximetry 94 93 94 09/12/23 11:30 09/12/23 12:10 09/12/23 12:11 Pulse Rate 81 Blood Pressure 135/72 Pulse Oximetry 93 93 09/12/23 12:11 09/12/23 16:07 09/12/23 16:07 Pulse Rate 83 88 Blood Pressure 138/76 Pulse Oximetry 93 94 MDM - Neuro Symptoms/Deficit <Meagan Jovel DO - Last Filed: 09/14/23 19:56> Lab Data 09/12/23 04:50 09/12/23 04:50 Labs: Lab Results 09/10/23 09/10/23 09/10/23 Range/Units 19:05 19:44 20:05 WBC 8.4 (4.5-11.0) X10^3/uL RBC 4.64 (4.0-5.2) X10^6/uL Hgb 14.4 (12.0-16.0) g/dL Hct 43.1 (36-46) % MCV 92.9 (80-100) fL MCH 31.1 (26-34) PG MCHC 33.4 (30-36) % RDW 12.8 (11.6-14.8) % Plt Count 276 (150-400) X10^3/uL Neut % (Auto) 75.8 H (50-75) % Lymph % (Auto) 12.8 L (25-40) % [place] % (Auto) 10.0 (3-14) % Eos % (Auto) 0.6 L (2-4) % Baso % (Auto) 0.8 (0-2) % Neut # (Auto) 6300 (3131-8533) /uL Lymph # (Auto) 1100 (5939-7384) /uL [place] # (Auto) 800 (0-900) /uL Eos # (Auto) 100 (0-450) /uL Baso # (Auto) 100 (0-100) /uL PT 12.6 H (9.4-12.5) SECONDS INR 1.1 (0.9-1.3) APTT 30 (25.1-36.5) SECONDS Sodium 138 (137-145) mmol/L Potassium 4.2 (3.4-5.1) mmol/L Chloride 103 (98-107) mmol/L Carbon Dioxide 25 (22-32) mmol/L BUN 12 (7-17) mg/dL Creatinine 0.56 (0.52-1.04) mg/dL Estimated GFR > 60 (>60) mL/min BUN/Creatinine Ratio 21.4 (6-22) Glucose 98 (80-110) mg/dL Calcium 9.8 (8.4-10.2) mg/dL Total Bilirubin 0.7 (0.2-1.3) mg/dL AST 20 (14-36) IU/L ALT 14 (<35) IU/L Alkaline Phosphatase 82 (38-126) U/L Total Creatine Kinase 33 (30-135) U/L Troponin I < 0.012 (0.01-0.034) ng/mL Total Protein 7.4 (6.3-8.2) g/dL Albumin 4.1 (3.5-5.0) g/dL Globulin 3.3 (1.7-4.1) g/dL Albumin/Globulin Ratio 1.2 (1.0-2.8) SARS-CoV-2 (PCR) Negative (Negative) 09/11/23 09/12/23 Range/Units 04:30 04:50 WBC 6.2 11.2 H D (4.5-11.0) X10^3/uL RBC 4.67 4.31 (4.0-5.2) X10^6/uL Hgb 14.9 13.6 (12.0-16.0) g/dL Hct 43.0 39.9 (36-46) % MCV 92.2 92.6 (80-100) fL MCH 32.0 31.5 (26-34) PG MCHC 34.7 34.1 (30-36) % RDW 12.9 12.6 (11.6-14.8) % Plt Count 310 318 (150-400) X10^3/uL Neut % (Auto) 91.1 H 90.5 H (50-75) % Lymph % (Auto) 7.7 L 6.3 L (25-40) % [place] % (Auto) 1.0 L 2.9 L (3-14) % Eos % (Auto) 0.0 L 0.1 L (2-4) % Baso % (Auto) 0.2 0.2 (0-2) % Neut # (Auto) 5600 11673 H (8368-9177) /uL Lymph # (Auto) 500 L 700 L (4788-0594) /uL [place] # (Auto) 100 300 (0-900) /uL Eos # (Auto) 0 0 (0-450) /uL Baso # (Auto) 0 0 (0-100) /uL PT (9.4-12.5) SECONDS INR (0.9-1.3) APTT (25.1-36.5) SECONDS Sodium 140 138 (137-145) mmol/L Potassium 4.3 4.0 (3.4-5.1) mmol/L Chloride 105 107 (98-107) mmol/L Carbon Dioxide 23 24 (22-32) mmol/L BUN 9 12 (7-17) mg/dL Creatinine 0.48 L 0.49 L (0.52-1.04) mg/dL Estimated GFR > 60 > 60 (>60) mL/min BUN/Creatinine Ratio 18.8 24.5 H (6-22) Glucose 149 H 131 H (80-110) mg/dL Calcium 9.9 9.6 (8.4-10.2) mg/dL Total Bilirubin (0.2-1.3) mg/dL AST (14-36) IU/L ALT (<35) IU/L Alkaline Phosphatase (38-126) U/L Total Creatine Kinase (30-135) U/L Troponin I (0.01-0.034) ng/mL Total Protein (6.3-8.2) g/dL Albumin (3.5-5.0) g/dL Globulin (1.7-4.1) g/dL Albumin/Globulin Ratio (1.0-2.8) SARS-CoV-2 (PCR) (Negative) Point of Care Testing Glucose POC 186 Urine Dip Bedside Urine Glucose Negative Bedside Urine Bilirubin - Negative Bedside Urine Ketone + 15 Urine Specific [place] 1.015 Bedside Urine Occult Blood - Negative Bedside Urine pH 6.0 Bedside Urine Protein +/- 15 Bedside Urine Nitrite - Negative Bedside Urine Leukocytes - Negative Esterase Imaging Data CT scan - head: Radiologist's Impression: PROCEDURE: CT STROKE INDICATIONS: facial droop,not TPA candidate. sx started 3 days ago. TECHNIQUE: Noncontrast 4.5 mm thick angled axial sections acquired from the foramen magnum to the vertex, with coronal reformats. For radiation dose reduction, the following was used: automated exposure control, adjustment of mA and/or kV according to patient size. COMPARISON: [facility], , MR ANGIO HEAD WITHOUT CONTRAST, 07/21/2022, 14:11. FINDINGS: Image quality: Diagnostic. CSF spaces: Basal cisterns are patent. No extra-axial fluid collections. Ventricles are normal in size and shape. Brain: Heterogeneous attenuation of the right basal ganglia, with masslike lesion measuring 4.7 x 5.8 cm. Surrounding vasogenic edema and mass effect, with a 6 mm midline shift, right to left. Skull and face: Calvarium and visualized facial bones are intact, without suspicious lesions. Sinuses: Visualized sinuses and mastoids are clear. IMPRESSION: Suspect mass in the right basal ganglia measuring approximately 4.7 x 5.8 cm. 6 mm midline shift, right to left. No herniation Findings discussed with Dr. Parra at 6:03 p.m. On 09/10/2023. This study fulfills neurological imaging criteria for inclusion or exclusion of acute stroke therapies based on available published neurological imaging guidelines. Dictated by: Guilherme Adams M.D. on 09/10/2023 at 18:00 MR brain: Radiologist's Impression: PROCEDURE: MR HEAD/BRAIN WO/W CON INDICATIONS: mass TECHNIQUE: Noncontrast axial T1 spin echo, axial T2 fast spin echo, sagittal and axial FLAIR, coronal T2 fast spin echo, axial gradient echo, axial diffusion and ADC through the brain. After the administration of contrast, axial and coronal and sagittal 3D VIBE or T1 spin echo with fat saturation through the brain. COMPARISON: [facility], , MR HEAD/BRAIN WO/W CON, 11/23/2021, 13:51. FINDINGS: Image quality: Excellent. CSF Spaces: Basal cisterns are patent. No extra-axial fluid collections. Ventricles are normal in size and shape. Brain: There is a mass centered within the right basal ganglia, with rim enhancement. The mass measures 4.4 x 5.2 x 4.6 cm (transverse, AP, cc). Significant vasogenic edema within this region. The mass demonstrates restricted diffusion. There is mass effect, with 7 mm right to left midline shift. Skull and face: Calvarial marrow is normal in signal. Orbits appear normal. Sinuses: Sinuses and mastoids appear clear. IMPRESSION: Rim enhancing mass in the right basal ganglia measuring 4.4 x 5.2 x 4.6 cm. Surrounding vasogenic edema with the right to left midline shift, without herniation. Findings are concerning for primary malignancy such as glioblastoma, favored over metastatic disease or other primary brain neoplasm. Dictated by: Guilherme Adams M.D. on 09/10/2023 at 19:33 ECG Data Interpretation: Sinus rhythm rate 75 VA interval 144 QRS [address] changes no T-wave inversions MDM Narrative Medical decision making narrative: Patient is a 68-year-old female presenting today with left facial droop concern for CVA. Head CT does confirm large brain mass. She has a GCS of 15 with NIH 1. Blood work has been reviewed CT head shows brain mass 4.7 x 5.8 cm with a 6 mm shift right to left without herniation MRI brain shows persistent mass with mild shift. 7:45pm Dr. Tijerina neurosurgery from [facility] updated patient's symptoms test results. Reports that patient should be transferred as soon as possible but not emergently urgently. Agrees with Lovenox and dexamethasone Patient has been updated on test results and need for transfer. They understand. Unfortunately critical bed shortage. Waiting for bed at [facility] will be at least 24-[address] hours[address] Signed out to Dr. Parra. Dr Penny: overnight 09/11-09/12: Received turned over. Review patient's history and physical exam. Patient is receiving dexamethasone. Home medications ordered. Patient has been stable. No signs of worsening. Care turned over to day provider to continue to evaluate until disposition with anticipated discharge to facility with Neurosurgery. 09/12/22 Dr. Aburto: Patient signed out to myself by Dr. Penny. Reviewed history and physical exam patient was seen and evaluated by myself. Patient is on dexamethasone did not receive doses yesterday during the day but did overnight. Home medications have been ordered patient had repeat labs today with slight increase of leukocytosis but not unexpected with dexamethasone. Otherwise normal electrolytes, glucose and renal function. Patient did have some confusion overnight but otherwise was reported to be stable. At this time is accepted at [facility] but no bed available. Spoke with Dr. Paulson neurosurgery, reveiwed events from overnight. Labs, imaging and if they would like MR brain from November 2021 pushed. Plan for transfer later today, bed expected to be available late afternoon. Patient has been alert, sometimes confused but otherwise appropriate. <Blayne Penny, DO - Last Filed: 09/16/23 07:53> Lab Data Labs: Lab Results 09/10/23 09/10/23 09/10/23 Range/Units 19:05 19:44 20:05 WBC 8.4 (4.5-11.0) X10^3/uL RBC 4.64 (4.0-5.2) X10^6/uL Hgb 14.4 (12.0-16.0) g/dL Hct 43.1 (36-46) % MCV 92.9 (80-100) fL MCH 31.1 (26-34) PG MCHC 33.4 (30-36) % RDW 12.8 (11.6-14.8) % Plt Count 276 (150-400) X10^3/uL Neut % (Auto) 75.8 H (50-75) % Lymph % (Auto) 12.8 L (25-40) % [place] % (Auto) 10.0 (3-14) % Eos % (Auto) 0.6 L (2-4) % Baso % (Auto) 0.8 (0-2) % Neut # (Auto) 6300 (5324-0108) /uL Lymph # (Auto) 1100 (4715-6406) /uL [place] # (Auto) 800 (0-900) /uL Eos # (Auto) 100 (0-450) /uL Baso # (Auto) 100 (0-100) /uL PT 12.6 H (9.4-12.5) SECONDS INR 1.1 (0.9-1.3) APTT 30 (25.1-36.5) SECONDS Sodium 138 (137-145) mmol/L Potassium 4.2 (3.4-5.1) mmol/L Chloride 103 (98-107) mmol/L Carbon Dioxide 25 (22-32) mmol/L BUN 12 (7-17) mg/dL Creatinine 0.56 (0.52-1.04) mg/dL Estimated GFR > 60 (>60) mL/min BUN/Creatinine Ratio 21.4 (6-22) Glucose 98 (80-110) mg/dL Calcium 9.8 (8.4-10.2) mg/dL Total Bilirubin 0.7 (0.2-1.3) mg/dL AST 20 (14-36) IU/L ALT 14 (<35) IU/L Alkaline Phosphatase 82 (38-126) U/L Total Creatine Kinase 33 (30-135) U/L Troponin I < 0.012 (0.01-0.034) ng/mL Total Protein 7.4 (6.3-8.2) g/dL Albumin 4.1 (3.5-5.0) g/dL Globulin 3.3 (1.7-4.1) g/dL Albumin/Globulin Ratio 1.2 (1.0-2.8) SARS-CoV-2 (PCR) Negative (Negative) 09/11/23 09/12/23 Range/Units 04:30 04:50 WBC 6.2 11.2 H D (4.5-11.0) X10^3/uL RBC 4.67 4.31 (4.0-5.2) X10^6/uL Hgb 14.9 13.6 (12.0-16.0) g/dL Hct 43.0 39.9 (36-46) % MCV 92.2 92.6 (80-100) fL MCH 32.0 31.5 (26-34) PG MCHC 34.7 34.1 (30-36) % RDW 12.9 12.6 (11.6-14.8) % Plt Count 310 318 (150-400) X10^3/uL Neut % (Auto) 91.1 H 90.5 H (50-75) % Lymph % (Auto) 7.7 L 6.3 L (25-40) % [place] % (Auto) 1.0 L 2.9 L (3-14) % Eos % (Auto) 0.0 L 0.1 L (2-4) % Baso % (Auto) 0.2 0.2 (0-2) % Neut # (Auto) 5600 59476 H (6487-1934) /uL Lymph # (Auto) 500 L 700 L (9563-6855) /uL [place] # (Auto) 100 300 (0-900) /uL Eos # (Auto) 0 0 (0-450) /uL Baso # (Auto) 0 0 (0-100) /uL PT (9.4-12.5) SECONDS INR (0.9-1.3) APTT (25.1-36.5) SECONDS Sodium 140 138 (137-145) mmol/L Potassium 4.3 4.0 (3.4-5.1) mmol/L Chloride 105 107 (98-107) mmol/L Carbon Dioxide 23 24 (22-32) mmol/L BUN 9 12 (7-17) mg/dL Creatinine 0.48 L 0.49 L (0.52-1.04) mg/dL Estimated GFR > 60 > 60 (>60) mL/min BUN/Creatinine Ratio 18.8 24.5 H (6-22) Glucose 149 H 131 H (80-110) mg/dL Calcium 9.9 9.6 (8.4-10.2) mg/dL Total Bilirubin (0.2-1.3) mg/dL AST (14-36) IU/L ALT (<35) IU/L Alkaline Phosphatase (38-126) U/L Total Creatine Kinase (30-135) U/L Troponin I (0.01-0.034) ng/mL Total Protein (6.3-8.2) g/dL Albumin (3.5-5.0) g/dL Globulin (1.7-4.1) g/dL Albumin/Globulin Ratio (1.0-2.8) SARS-CoV-2 (PCR) (Negative) Point of Care Testing Glucose POC 186 Urine Dip Bedside Urine Glucose Negative Bedside Urine Bilirubin - Negative Bedside Urine Ketone + 15 Urine Specific [place] 1.015 Bedside Urine Occult Blood - Negative Bedside Urine pH 6.0 Bedside Urine Protein +/- 15 Bedside Urine Nitrite - Negative Bedside Urine Leukocytes - Negative Esterase MDM Narrative Medical decision making narrative: 7:45pm Dr. Lilliana Penny: overnight 09/11-09/12: Received turned over. Review patient's history and physical exam. Patient is receiving dexamethasone. Home medications ordered. Patient has been stable. No signs of worsening. Care turned over to day provider to continue to evaluate until disposition with anticipated discharge to facility with Neurosurgery. <Rossi Aburto, - Last Filed: 09/12/23 17:50> Lab Data Labs: Lab Results 09/10/23 09/10/23 09/10/23 Range/Units 19:05 19:44 20:05 WBC 8.4 (4.5-11.0) X10^3/uL RBC 4.64 (4.0-5.2) X10^6/uL Hgb 14.4 (12.0-16.0) g/dL Hct 43.1 (36-46) % MCV 92.9 (80-100) fL MCH 31.1 (26-34) PG MCHC 33.4 (30-36) % RDW 12.8 (11.6-14.8) % Plt Count 276 (150-400) X10^3/uL Neut % (Auto) 75.8 H (50-75) % Lymph % (Auto) 12.8 L (25-40) % [place] % (Auto) 10.0 (3-14) % Eos % (Auto) 0.6 L (2-4) % Baso % (Auto) 0.8 (0-2) % Neut # (Auto) 6300 (6519-1351) /uL Lymph # (Auto) 1100 (5245-9043) /uL [place] # (Auto) 800 (0-900) /uL Eos # (Auto) 100 (0-450) /uL Baso # (Auto) 100 (0-100) /uL PT 12.6 H (9.4-12.5) SECONDS INR 1.1 (0.9-1.3) APTT 30 (25.1-36.5) SECONDS Sodium 138 (137-145) mmol/L Potassium 4.2 (3.4-5.1) mmol/L Chloride 103 (98-107) mmol/L Carbon Dioxide 25 (22-32) mmol/L BUN 12 (7-17) mg/dL Creatinine 0.56 (0.52-1.04) mg/dL Estimated GFR > 60 (>60) mL/min BUN/Creatinine Ratio 21.4 (6-22) Glucose 98 (80-110) mg/dL Calcium 9.8 (8.4-10.2) mg/dL Total Bilirubin 0.7 (0.2-1.3) mg/dL AST 20 (14-36) IU/L ALT 14 (<35) IU/L Alkaline Phosphatase 82 (38-126) U/L Total Creatine Kinase 33 (30-135) U/L Troponin I < 0.012 (0.01-0.034) ng/mL Total Protein 7.4 (6.3-8.2) g/dL Albumin 4.1 (3.5-5.0) g/dL Globulin 3.3 (1.7-4.1) g/dL Albumin/Globulin Ratio 1.2 (1.0-2.8) SARS-CoV-2 (PCR) Negative (Negative) 09/11/23 09/12/23 Range/Units 04:30 04:50 WBC 6.2 11.2 H D (4.5-11.0) X10^3/uL RBC 4.67 4.31 (4.0-5.2) X10^6/uL Hgb 14.9 13.6 (12.0-16.0) g/dL Hct 43.0 39.9 (36-46) % MCV 92.2 92.6 (80-100) fL MCH 32.0 31.5 (26-34) PG MCHC 34.7 34.1 (30-36) % RDW 12.9 12.6 (11.6-14.8) % Plt Count 310 318 (150-400) X10^3/uL Neut % (Auto) 91.1 H 90.5 H (50-75) % Lymph % (Auto) 7.7 L 6.3 L (25-40) % [place] % (Auto) 1.0 L 2.9 L (3-14) % Eos % (Auto) 0.0 L 0.1 L (2-4) % Baso % (Auto) 0.2 0.2 (0-2) % Neut # (Auto) 5600 77021 H (1868-7895) /uL Lymph # (Auto) 500 L 700 L (2075-8274) /uL [place] # (Auto) 100 300 (0-900) /uL Eos # (Auto) 0 0 (0-450) /uL Baso # (Auto) 0 0 (0-100) /uL PT (9.4-12.5) SECONDS INR (0.9-1.3) APTT (25.1-36.5) SECONDS Sodium 140 138 (137-145) mmol/L Potassium 4.3 4.0 (3.4-5.1) mmol/L Chloride 105 107 (98-107) mmol/L Carbon Dioxide 23 24 (22-32) mmol/L BUN 9 12 (7-17) mg/dL Creatinine 0.48 L 0.49 L (0.52-1.04) mg/dL Estimated GFR > 60 > 60 (>60) mL/min BUN/Creatinine Ratio 18.8 24.5 H (6-22) Glucose 149 H 131 H (80-110) mg/dL Calcium 9.9 9.6 (8.4-10.2) mg/dL Total Bilirubin (0.2-1.3) mg/dL AST (14-36) IU/L ALT (<35) IU/L Alkaline Phosphatase (38-126) U/L Total Creatine Kinase (30-135) U/L Troponin I (0.01-0.034) ng/mL Total Protein (6.3-8.2) g/dL Albumin (3.5-5.0) g/dL Globulin (1.7-4.1) g/dL Albumin/Globulin Ratio (1.0-2.8) SARS-CoV-2 (PCR) (Negative) Point of Care Testing Glucose POC 186 Urine Dip Bedside Urine Glucose Negative Bedside Urine Bilirubin - Negative Bedside Urine Ketone + 15 Urine Specific [place] 1.015 Bedside Urine Occult Blood - Negative Bedside Urine pH 6.0 Bedside Urine Protein +/- 15 Bedside Urine Nitrite - Negative Bedside Urine Leukocytes - Negative Esterase MDM Narrative Medical decision making narrative: 7:45pm Dr. Lilliana Penny: overnight 09/11-09/12: Received turned over. Review patient's history and physical exam. Patient is receiving dexamethasone. Home medications ordered. Patient has been stable. No signs of worsening. Care turned over to day provider to continue to evaluate until disposition with anticipated discharge to facility with Neurosurgery. 09/12/22 Dr. Aburto: Patient signed out to myself by Dr. Penny. Reviewed history and physical exam patient was seen and evaluated by myself. Patient is on dexamethasone did not receive doses yesterday during the day but did overnight. Home medications have been ordered patient had repeat labs today with slight increase of leukocytosis but not unexpected with dexamethasone. Otherwise normal electrolytes, glucose and renal function. Patient did have some confusion overnight but otherwise was reported to be stable. At this time is accepted at [facility] but no bed available. Spoke with Dr. Paulson neurosurgery, reveiwed events from overnight. Labs, imaging and if they would like MR brain from November 2021 pushed. Plan for transfer later today, bed expected to be available late afternoon. Patient has been alert, sometimes confused but otherwise appropriate. Critical Care Time <Meagan Jovel, - Last Filed: 09/14/23 19:56> Critical Care Time Critical Care Time: Yes Total Critical Care Time: 45 Attestation: The high probability of a clinically significant, sudden or life threatening deterioration of the [cardiovascular] system(s) required my full and direct attention, intervention and personal management. The aggregate critical care time was [45] minutes. This time is in addition to time spent performing reported procedures but includes the following: [x] Data Review and interpretation [x] Patient assessment and monitoring of vital signs [x] Documentation [x] Medication orders and management Discharge Plan Departure Patient Disposition: [facility] Clinical Impression: Brain mass Prescriptions: No Action amlodipine 5 mg tablet 5 mg PO DAILY [ADVIL] tablet 200 PRN (Reason: Analgesia) Qty: 0 Rx Instructions: As directed, PRN rosuvastatin 5 mg tablet 5 mg PO DAILY coenzyme Q10 [CoQ-10] See Rx Instructions .ROUTE .COMPLEX Rx Instructions: Pt uncertain of dose mecobalamin (vitamin B12) 1,000 mcg tablet,disintegrating 1,000 mcg sublingual DAILY Rx Instructions: place tablet under tongue and allow to dissolve for at least30 secs before swallowing Referrals: Mey Lopez MD [Primary Care Provider] -
[2023-09-10] MEDS: DEXAMETHASONE 10 MG/ML VIAL IV (18:56)
--- NOTE | 2023-09-10 19:09 | DI.RAD.S_ITS ---
PROCEDURE: XR CHEST 1V INDICATIONS: brain mass TECHNIQUE: One view of the chest was acquired. COMPARISON: [facility], [place], [place]R CHEST 1V, 02/11/2021, 16:21. [facility], [place], XR CHEST 2V, 10/31/2018, 14:18. FINDINGS: Surgical changes and devices: None. Lungs and pleura: Lungs are clear. No pleural effusions or pneumothorax. Mediastinum: Mediastinal contours appear normal. Heart size is normal. Bones and chest wall: No suspicious bony lesions. Overlying soft tissues appear unremarkable. IMPRESSION: No pulmonary metastases are identified. Dictated by: Guilherme Adams M.D. on 09/10/2023 at 19:45 Approved by: Guilherme Adams M.D. on 09/10/2023 at 19:47
[2023-09-10 19:17] LABS: Add Manual Diff / Slide Review NO; Basophils Absolute Auto 100 /uL (0-100); Basophils Percent Auto 0.8 % (0-2); Eosinophils Absolute Auto 100 /uL (0-450); Eosinophils Percent Auto 0.6 % (2-4); Hematocrit 43.1 % (36-46); Hemoglobin 14.4 g/dL (12.0-16.0); Lymphocytes Absolute Auto 1100 /uL (1100-4500); Lymphocytes Percent Auto 12.8 % (25-40); Mean Corpuscular HGB Conc 33.4 % (30-36); Mean Corpuscular Hemoglobin 31.1 PG (26-34); Mean Corpuscular Volume 92.9 fL (80-100); Monocytes Absolute Auto 800 /uL (0-900); Neutrophils Absolute Auto 6300 /uL (1500-7000); Neutrophils Percent Auto 75.8 % (50-75); Platelet Count 276 X10^3/uL (150-400); Red Blood Cell Count 4.64 X10^6/uL (4.0-5.2); Red Cell Distribution Width 12.8 % (11.6-14.8); White Blood Cell Count 8.4 X10^3/uL (4.5-11.0)
[2023-09-10 19:29] LABS: Alanine Aminotransferase 14 IU/L (<35); Albumin 4.1 g/dL (3.5-5.0); Albumin Globulin Ratio 1.2 (1.0-2.8); Alkaline Phosphatase 82 U/L (38-126); Aspartate Aminotransferase 20 IU/L (14-36); BUN Creatinine Ratio 21.4 (6-22); Bilirubin Total 0.7 mg/dL (0.2-1.3); Blood Urea Nitrogen 12 mg/dL (7-17); Calcium 9.8 mg/dL (8.4-10.2); Carbon Dioxide 25 mmol/L (22-32); Chloride 103 mmol/L (98-107); Creatine Kinase 33 U/L (30-135); Estimated Glomerular Filt Rate > 60 mL/min (>60); Globulin 3.3 g/dL (1.7-4.1); Glucose 98 mg/dL (80-110); HEMOLYSIS < 15 (0-50); Potassium 4.2 mmol/L (3.4-5.1); Sodium 138 mmol/L (137-145); Total Protein 7.4 g/dL (6.3-8.2)
[2023-09-10 19:40] LABS: Troponin I < 0.012 ng/mL (0.01-0.034)
[2023-09-10 20:07] LABS: COVID19 -Nasal RAPID Negative (Negative)
[2023-09-10 20:19] LABS: INR 1.1 (0.9-1.3); Prothrombin Time 12.6 SECONDS (9.4-12.5)
[2023-09-10 20:22] LABS: PTT Partial Thromboplastin Tim 30 SECONDS (25.1-36.5)
[2023-09-10] MEDS: AMOXICILLIN 250 MG CAPSULE 500 MG PO (20:49)
[2023-09-10] MEDS: SODIUM CHLORIDE 0.9% 1,000 ML 100 ML IV (21:29)
--- NOTE | 2023-09-10 23:07 | PC.NURSE ---
Pt awaiting bed at . Possible bed in the next 48 hrs will F/U 09/11/2023
[2023-09-11] VITALS (35 sets, daily range): BP systolic 111–140; BP diastolic 58–86; PULSE 66–99; RESP 12–31; TEMP 36.6–36.8; O2SAT 89–96; BMI 25.8
[2023-09-11] MEDS: DEXAMETHASONE 4 MG/ML VIAL IV ×2 (00:25→06:31)
[2023-09-11 04:44] LABS: Add Manual Diff / Slide Review NO; Basophils Absolute Auto 0 /uL (0-100); Basophils Percent Auto 0.2 % (0-2); Eosinophils Absolute Auto 0 /uL (0-450); Hemoglobin 14.9 g/dL (12.0-16.0); Lymphocytes Absolute Auto 500 /uL (1100-4500); Lymphocytes Percent Auto 7.7 % (25-40); Mean Corpuscular HGB Conc 34.7 % (30-36); Mean Corpuscular Volume 92.2 fL (80-100); Monocytes Absolute Auto 100 /uL (0-900); Neutrophils Absolute Auto 5600 /uL (1500-7000); Neutrophils Percent Auto 91.1 % (50-75); Platelet Count 310 X10^3/uL (150-400); Red Blood Cell Count 4.67 X10^6/uL (4.0-5.2); Red Cell Distribution Width 12.9 % (11.6-14.8); White Blood Cell Count 6.2 X10^3/uL (4.5-11.0)
[2023-09-11 04:54] LABS: BUN Creatinine Ratio 18.8 (6-22); Blood Urea Nitrogen 9 mg/dL (7-17); Calcium 9.9 mg/dL (8.4-10.2); Carbon Dioxide 23 mmol/L (22-32); Chloride 105 mmol/L (98-107); Estimated Glomerular Filt Rate > 60 mL/min (>60); Glucose 149 mg/dL (80-110); HEMOLYSIS < 15 (0-50); Potassium 4.3 mmol/L (3.4-5.1); Sodium 140 mmol/L (137-145)
[2023-09-11] MEDS: AMOXICILLIN 250 MG CAPSULE 500 MG PO (09:35)
[2023-09-11] MEDS: AMLODIPINE 5 MG TABLET PO (09:35)
[2023-09-11] MEDS: ENOXAPARIN 40 MG/0.4 ML SYRINGE SUBCUT (09:35)
--- NOTE | 2023-09-11 12:05 | PC.NURSE ---
[employer] TEAM MEMBER NOTE: called [facility] for update on pt bed status still no update but maybe late this afternoon
--- NOTE | 2023-09-11 17:07 | PC.NURSE ---
Pt states she has had a good day, today. Pt has spent the day resting, knitting, talking with friends on the phone and reading. at the bedside on and off throughout the day. Pt is in good spirits and speaks openly to friends /family about her current dx.
--- NOTE | 2023-09-11 20:00 | PC.NURSE ---
spoke with transfer center about bed status. transfer center indicated that a bed would most likley free up 09/12 after 1100 am
[2023-09-12] VITALS (31 sets, daily range): BP systolic 129–138; BP diastolic 68–80; PULSE 59–93; RESP 18; TEMP 36.6; O2SAT 83–97
[2023-09-12] MEDS: DEXAMETHASONE 4 MG/ML VIAL IV ×4 (00:02→17:52)
[2023-09-12 05:01] LABS: Add Manual Diff / Slide Review NO; Basophils Absolute Auto 0 /uL (0-100); Basophils Percent Auto 0.2 % (0-2); Eosinophils Absolute Auto 0 /uL (0-450); Eosinophils Percent Auto 0.1 % (2-4); Hematocrit 39.9 % (36-46); Hemoglobin 13.6 g/dL (12.0-16.0); Lymphocytes Absolute Auto 700 /uL (1100-4500); Lymphocytes Percent Auto 6.3 % (25-40); Mean Corpuscular HGB Conc 34.1 % (30-36); Mean Corpuscular Hemoglobin 31.5 PG (26-34); Mean Corpuscular Volume 92.6 fL (80-100); Monocytes Absolute Auto 300 /uL (0-900); Monocytes Percent Auto 2.9 % (3-14); Neutrophils Absolute Auto 10100 /uL (1500-7000); Neutrophils Percent Auto 90.5 % (50-75); Platelet Count 318 X10^3/uL (150-400); Red Blood Cell Count 4.31 X10^6/uL (4.0-5.2); Red Cell Distribution Width 12.6 % (11.6-14.8); White Blood Cell Count 11.2 X10^3/uL (4.5-11.0)
[2023-09-12 05:07] LABS: BUN Creatinine Ratio 24.5 (6-22); Blood Urea Nitrogen 12 mg/dL (7-17); Calcium 9.6 mg/dL (8.4-10.2); Carbon Dioxide 24 mmol/L (22-32); Chloride 107 mmol/L (98-107); Estimated Glomerular Filt Rate > 60 mL/min (>60); Glucose 131 mg/dL (80-110); HEMOLYSIS < 15 (0-50); Sodium 138 mmol/L (137-145)
[2023-09-12] MEDS: AMOXICILLIN 250 MG CAPSULE 500 MG PO ×3 (09:40→15:09)
[2023-09-12] MEDS: AMLODIPINE 5 MG TABLET PO (09:41)
[2023-09-12] MEDS: ENOXAPARIN 40 MG/0.4 ML SYRINGE SUBCUT (09:41)
--- NOTE | 2023-09-12 11:11 | PC.NURSE ---
BROYN RN placed PICC line @ 1100. Pt tolerated procedure well. Echo being performed at this time, in treatment room.
--- NOTE | 2023-09-12 14:58 | PC.NURSE ---
Pt states she started the amoxicillin on 09/04/23 and the rx was for 10 days. Per pt, original script written by [facility] for periodontal/tooth infection.
--- NOTE | 2023-09-12 17:22 | PC.NURSE ---
Son and at the bedside since 1145. Provider sat down with family to discuss patient diagnosis and plan of care. Pt and family aware of transfer to [facility].
--- NOTE | 2023-09-12 17:54 | PC.NURSE ---
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
== END 2023-09-12 18:02 | disposition short-term general hospital (02) ==
PROVIDERS: Emergency Medicine; Emergency Provider Emergency Medicine; PCP Internal Medicine
DX: G93.89 Other specified disorders of brain (principal); R07.9 Chest pain, unspecified; R29.701 NIHSS score 1; Z20.822 Contact with and (suspected) exposure to COVID-19
CPT/HCPCS: 36415; 70450; 70553; 71045; 80048; 80053; 81003; 82550; 82962; 84484; 85025; 85610; 85730; 87635; 93005; 93010; 96361; 96372; 96374; 96376; 99284; 99285; C9803; J1100; J1650